=== PATIENT | male | born 1960 | race Caucasian/White ===

== ENCOUNTER 2018-11-05 19:34 | Day surgery (SDC) | payer OTHER ==
[2018-11-05] MEDS ORDERED: Morphine 4 MG/ML VIAL ONE (19:57)
[2018-11-05] MEDS ORDERED: Ketorolac Tromethamine 30 MG/ML VIAL ONE (19:57)
[2018-11-05 20:02] LABS: #Basophils 0.1 thou/uL (0.0-0.2); #Eosinphils 0.4 thou/uL (0.0-0.7); #Lymphocytes 3.2 thou/uL (1.20-3.40); #Monocytes 0.8 thou/uL (0.11-0.59); #Neutrophils 9.6 thou/uL (1.40-6.50); %Basophils 0.8 % (0.0-1.0); %Lymphocytes 22.8 % (21.0-51.0); %Monocytes 5.9 % (0.0-10.0); %Neutrophils 67.5 % (42.0-75.0); Hemoglobin 14.5 g/dL (14.0-18.0); Mean Corpuscular HGB CONC 33.9 g/dL (32.0-36.0); Mean Corpuscular Hemoglobin 31.4 pg (27.0-31.0); Mean Corpuscular Volume 92.6 fL (78.0-98.0); Mean Platelet Volume 6.6 fL (7.4-10.4); Platelet Count 275 thou/uL (130-400); RBC Distribution Width 11.1 % (11.5-14.5); Red Blood Cell (RBC) Count 4.63 mill/uL (4.70-6.10); White Blood Cell (WBC) Count 14.2 thou/uL (4.8-10.8)
[2018-11-05 20:27] LABS: ALT (SGPT) 15 U/L (8-55); AST (SGOT) 17 U/L (5-34); Albumin 4.7 g/dL (3.5-5.0); Alkaline Phosphatase 87 U/L (40-150); Anion Gap 15 mmol/L (10-20); BUN (Urea Nitrogen) 20 mg/dL (8.4-25.7); Bilirubin, Total 0.3 mg/dL (0.2-1.2); Calc. Creatinine Clearance 0 mL/min (70-130); Calcium 10.3 mg/dL (7.8-10.44); Carbon Dioxide 26 mmol/L (22-29); Chloride 102 mmol/L (98-107); Estimated GFR-MDRD 56; Glucose 139 mg/dL (70-105); Potassium 3.5 mmol/L (3.5-5.1); Protein, Total 7.7 g/dL (6.0-8.3); Sodium 139 mmol/L (136-145)
[2018-11-05 20:38] LABS: Bilirubin Negative (Negative); Blood, Urine Negative (Negative); Clarity CLEAR (Clear); Glucose, Urine (Dipstick) Negative (Negative); Leukocyte Negative (Negative); Nitrite Negative (Negative); Protein, Urine (Dipstick) Negative (Neg-Trace); Specific Gravity, Urine 1.025 (1.002-1.036); Urobilinogen 0.2 mg/dL (0.2-1.0)
--- NOTE | 2018-11-05 21:16 | CT ---
NONCONTRAST CT ABDOMEN AND PELVIS 11/05/18 HISTORY: Sharp lower abdominal pain for three weeks which has been intermittent. Associated nausea and diaphor esis and chills. COMPARISON: None available. FINDINGS: Lung bases are clear. Mild degenerative changes are seen in the spine. There is a large calculus seen within the gallbladder lumen which measures 2.4 cm. There is adjacent pericholecystic inflammatory changes and mild edema. Findings could be related to cholecystitis in th e correct clinical scenario. There is a subcentimeter too small to characterize hypodense lesion anterior aspect of the lateral se gment of the left hepatic lobe. The spleen, pancreas, bilateral adrenal glands, kidneys, and urinary bladder demonstrate a grossly no rmal nonenhanced CT appearance. Loops of small bowel are normal in caliber. Vascular calcifications seen in the abdominal aorta and involving the iliac arteries. IMPRESSION: 1. Findings suggesting cholecystitis with large calculus in the gallbladder lumen measuring 2.4 cm. 2. Above findings discussed with Dr. Albert in the Emergency Department on 11/05/18 at 2021 hours. POS: [facility]
[2018-11-05] MEDS ORDERED: Pantoprazole 40 MG VIAL IVP SCH (22:30)
[2018-11-05] MEDS: Morphine 4 MG/ML VIAL SLOW IVP PRN (22:59)
[2018-11-06 07:43] VITALS: BMI 24.8
[2018-11-06] MEDS: Morphine 4 MG/ML VIAL SLOW IVP PRN (08:39)
[2018-11-06] MEDS ORDERED: Ketorolac Tromethamine 30 MG/ML VIAL ONE (09:21)
--- NOTE | 2018-11-06 10:24 | HP ---
HISTORY OF PRESENT ILLNESS: Isaiah Lam is a 58-year-old male patient, retired [employer] in [facility], has had three weeks of intermittent abdominal pain exacerbated by fatty foods such as ice cream. He presents to the emergency room. CAT scan revealed changes consistent with cholecystitis and cholelithiasis. Liver function tests are normal. He has received Levaquin. ALLERGIES: NONE. SOCIAL HISTORY: Tobacco, one-half pack per day. Alcohol, rarely. PAST MEDICAL HISTORY: Noncontributory. PAST SURGICAL HISTORY: ORIF ankle and hand surgery. REVIEW OF SYSTEMS: Ten-point noncontributory. PHYSICAL EXAMINATION: VITAL SIGNS: Weight 87 kilogram, blood pressure 180/84, pulse 63, respiratory rate 15, and temperature 97.5 degrees. HEAD, EARS, EYES, NOSE, AND THROAT: Unremarkable. Sclerae nonicteric. SKIN: Nonjaundiced. NEUROLOGICAL: Intact. No deficits. LUNGS: Clear to auscultation. No wheezing. CARDIAC: Regular rhythm without murmur or gallop. ABDOMEN: Soft. Tenderness in right upper quadrant with positive Arriaga sign. EXTREMITIES: Unremarkable. LABORATORY DATA: CBC, comprehensive metabolic profile, unremarkable. ASSESSMENT AND PLAN: Acute cholecystitis. Recommend laparoscopic video cholecystectomy. Risks of infection, bleeding, visceral and biliary injury explained. He consents. Job ID: [id number]
[2018-11-06] MEDS ORDERED: Fentanyl 100 MCG/2 ML VIAL ONE (10:41)
[2018-11-06] MEDS ORDERED: Bupivacaine HCl 0.5%/Epinephrine 1:200,000/PF 30 ml Vial ONE (11:16)
[2018-11-06] MEDS ORDERED: Acetaminophen 500 MG TAB PO PRN (11:29)
[2018-11-06] MEDS ORDERED: Ondansetron ODT 8 MG TAB PO PRN (11:29)
[2018-11-06] MEDS ORDERED: Ondansetron PF 4 MG/2 ML Vial IVP PRN (11:29)
[2018-11-06] MEDS ORDERED: traMADol HCl 50 MG TAB PO PRN ×2 (11:29)
[2018-11-06] MEDS ORDERED: Ibuprofen 600 MG TAB PO PRN (11:29)
[2018-11-06] MEDS ORDERED: Ondansetron ODT 8 MG TAB SL PRN (11:29)
[2018-11-06] MEDS ORDERED: Morphine Sulfate 2 MG/ML SYRINGE SLOW IVP PRN (12:24)
[2018-11-06] MEDS ORDERED: HYDROmorphone 2 MG/ML VIAL SLOW IVP PRN (12:24)
[2018-11-06] MEDS ORDERED: Promethazine HCl 25 MG/ML VIAL IM PRN (12:24)
[2018-11-06] MEDS ORDERED: Ondansetron HCl/PF 4 MG/2 ML Vial IVP PRN (12:24)
[2018-11-06] MEDS ORDERED: Meperidine HCl/PF 25 MG/ML VIAL SLOW IVP PRN (12:24)
[2018-11-06] MEDS ORDERED: Promethazine HCl 25 MG/ML VIAL SLOW IVP PRN (12:24)
[2018-11-06] MEDS ORDERED: PACU-Morphine 4MG/ML VIAL SLOW IVP PRN (12:24)
[2018-11-06] MEDS ORDERED: Dexamethasone 20 MG/5 ML VIAL ONE (12:42)
[2018-11-06] MEDS ORDERED: Lidocaine 1% PF 5 ML VIAL ONE (12:42)
[2018-11-06] MEDS ORDERED: PROPOFOL 200 MG/20 ML VIAL ONE (12:42)
[2018-11-06] MEDS ORDERED: Glycopyrrolate 0.2 MG/ML 5 ML SYRINGE ONE (12:42)
[2018-11-06] MEDS ORDERED: Ondansetron PF 4 MG/2 ML Vial ONE (12:42)
[2018-11-06 16:00] VITALS: BP 134/83; TEMP 98.2
--- NOTE | 2018-11-06 17:49 | DIS ---
DATE OF ADMISSION: 11/05/2018 DATE OF DISCHARGE: 11/06/2018 DISCHARGE DIAGNOSES: 1. Acute cholecystitis. 2. Cholelithiasis. 3. Tobacco abuse. PROCEDURES: Laparoscopic video cholecystectomy. HISTORY: A 58-year-old male with acute onset of abdominal pain lasting for several weeks presented when he could not stand anymore. CAT scan revealed an acute cholecystitis with normal liver function tests, normal bile duct caliber without intrahepatic ductal dilatation and hospitalized overnight from the emergency room. Received intravenous fluids, antibiotics, and then underwent laparoscopic video cholecystectomy. He was discharged home postoperatively on tramadol p.r.n. pain and Levaquin 500 mg a day for five days. Follow up in my office in 2 to 3 weeks. Tylenol and ibuprofen for pain. Ultram if necessary #20 two refills. Job ID: [id number]
--- NOTE | 2018-11-07 22:52 | OP ---
DATE OF PROCEDURE: 11/06/2018 PREOPERATIVE DIAGNOSES: Acute cholecystitis, cholelithiasis. POSTOPERATIVE DIAGNOSES: Acute cholecystitis, cholelithiasis. PROCEDURE: Laparoscopic video cholecystectomy. ANESTHESIA: General, local of 0.5% Marcaine with epinephrine 30 mL. FINDINGS: Acute cholecystitis, thickened wall requiring large incision subxiphoid to remove and 2-0 Vicryl closure, fascia. DESCRIPTION OF PROCEDURE: The patient was taken to the operating room, where under general anesthesia, the abdomen was prepared with ChloraPrep and draped in routine fashion. Local anesthetic was infiltrated in the skin and subcutaneous tissue at about each port site. An infraumbilical incision was made. Pneumoperitoneum to 15 mmHg was obtained with a Veress needle, replaced with a 5 port, and the laparoscope was inserted. The remainder of the ports were placed under laparoscopic visualization. Liver appeared to be normal. Right subxiphoid incision was made. An 11 port was placed. A right subcostal incision made, midclavicular, anterior axillary line, and 5 port was placed. The gallbladder was acutely inflamed and thickened wall, difficult to grasp. Fundus was grasped and reflected cephalad. The infundibulum was grasped and reflected laterally after stripping the omental adhesions down. Hemostasis gained with the cautery. The cystic artery and duct dissected free. Critical view was obtained. Cystic artery and duct were double clipped proximally, and divided. Gallbladder was dissected free from its edematous oozing attachments to the liver bed using cautery for hemostasis. Gallbladder and contents removed and submitted to Pathology. Irrigant pneumoperitoneum evacuated after obtaining good hemostasis and after applying Luis F up to the liver bed. Good hemostasis was achieved. The subxiphoid fascia was approximated with [id number] sutures of 2-0 Vicryl. Skin and subcutaneous tissues were irrigated, and skin was approximated with subdermal 4-0 Monocryl and Bostic glue applied. Job ID: [id number]
--- NOTE | 2018-11-10 15:21 | EKG ---
Test Reason : Blood Pressure : / mmHG Vent. Rate : 063 BPM Atrial Rate : 063 BPM P-R Int : 130 ms QRS Dur : 090 ms QT Int : 410 ms P-R-T Axes : 063 019 046 degrees QTc Int : 419 ms Normal sinus rhythm Normal ECG Confirmed by JESUS HUSSEIN MD ([id number]), pictures editor JASWINDER GARDNER ([id number]) on 11/10/2018 3:21:18 PM Referred By: Confirmed By:JESUS HUSSEIN MD
== END 2018-11-06 16:25 | disposition home or self-care (01) ==
LOC: ERS 19:34 → SURG B 20:50 → ERS 22:05 → SDC/OP 22:49 → SURG B 22:53 → SDC/OP 11-06 16:25
PROVIDERS: ATTEND Specialist
PROC: 0FT44ZZ Resection of Gallbladder, Percutaneous Endoscopic Approach (ICD-10-PCS; principal; 2018-11-06)
DX: K80.00 Calculus of gallbladder with acute cholecystitis without obstruction (principal); K82.8 Other specified diseases of gallbladder; F17.210 Nicotine dependence, cigarettes, uncomplicated
CPT/HCPCS: 74176; 80053; 81003; 85025; 88304; 93005; 96365; 96375; C9113; J0131; J0670; J1100; J1885; J1956; J2001; J2270; J2405; J2704; J3010

== ENCOUNTER 2021-05-29 11:29 | Emergency (ER) | payer OTHER ==
[~2021-05-29 11:29] MED LIST: Iopamidol-370 76% 500 ML 1 ML ONE
[2021-05-29 13:30] LABS: #Basophils 0.1 thou/uL (0.0-0.2); #Eosinphils 0.5 thou/uL (0.0-0.7); #Monocytes 0.9 thou/uL (0.11-0.59); #Neutrophils 8.4 thou/uL (1.40-6.50); %Basophils 0.5 % (0.0-1.0); %Eosinophils 3.9 % (0.0-10.0); %Lymphocytes 16.7 % (21.0-51.0); %Monocytes 7.6 % (0.0-10.0); %Neutrophils 71.4 % (42.0-75.0); Hemoglobin 13.6 g/dL (14.0-18.0); Mean Corpuscular HGB CONC 35.4 g/dL (32.0-36.0); Mean Corpuscular Hemoglobin 33.2 pg (27.0-31.0); Mean Corpuscular Volume 93.7 fL (78.0-98.0); Mean Platelet Volume 6.3 fL (7.4-10.4); Platelet Count 241 thou/uL (130-400); RBC Distribution Width 11.2 % (11.5-14.5); Red Blood Cell (RBC) Count 4.09 mill/uL (4.70-6.10); White Blood Cell (WBC) Count 11.7 thou/uL (4.8-10.8)
[2021-05-29 13:57] LABS: ALT (SGPT) 28 U/L (8-55); AST (SGOT) 23 U/L (5-34); Albumin 3.8 g/dL (3.5-5.0); Alkaline Phosphatase 91 U/L (40-110); Anion Gap 13 mmol/L (10-20); BUN (Urea Nitrogen) 17 mg/dL (8.4-25.7); Bilirubin, Total 0.4 mg/dL (0.2-1.2); CK (CPK) 63 U/L (30-200); Calc. Creatinine Clearance 0 mL/min (70-130); Calcium 8.9 mg/dL (7.8-10.44); Carbon Dioxide 26 mmol/L (22-29); Chloride 103 mmol/L (98-107); Globulin 2.5 g/dL (2.4-3.5); Glucose 93 mg/dL (70-105); Potassium 4.7 mmol/L (3.5-5.1); Protein, Total 6.3 g/dL (6.0-8.3); Sodium 137 mmol/L (136-145)
[2021-05-29 16:44] LABS: Troponin I Less than 0.010 ng/mL (< 0.028)
== END 2021-05-29 18:09 | disposition home or self-care (01) ==
LOC: ERS 11:29
DX: J90 Pleural effusion, not elsewhere classified (principal); F17.210 Nicotine dependence, cigarettes, uncomplicated
CPT/HCPCS: 36415; 71045; 71275; 80053; 82550; 84484; 85025; 85379; 93005; Q9967